=== PATIENT | female | born 1995 | race Two or more races ===

== ENCOUNTER → 2019-12-01 | Outpatient (CLI) | payer OTHER, BC | END | disposition home or self-care (01) | LOC: CFH 12:37 | PROVIDERS: ATTEND Internal Medicine | DX: M51.36 Other intervertebral disc degeneration, lumbar region (principal); M43.24 Fusion of spine, thoracic region; M43.8X6 Other specified deforming dorsopathies, lumbar region; M41.84 Other forms of scoliosis, thoracic region; M48.061 Spinal stenosis, lumbar region without neurogenic claudication | CPT/HCPCS: 72072; 72110 ==